=== PATIENT | male | born 1990 | race Caucasian/White ===

== ENCOUNTER 2021-09-14 02:44 | Emergency (ER) | payer SELFPAY ==
[~2021-09-14] VITALS: Ht 175.3 cm; Wt 70.0 kg
[2021-09-14] MEDS ORDERED: bacitracin 15gm ointment TP ONE (03:20)
[2021-09-14] MEDS ORDERED: TETanus/Pertussis (Acell)/Diphther VAC/PF (Tdap-Adult) 0.5ml syringe IMVAC ONE (03:20)
[2021-09-14] MEDS ORDERED: ondansetron 4mg rapidly disintigrating tab PO ONE (03:20)
[2021-09-14] MEDS ORDERED: amox tr/potassium clavulanate 875/125mg TAB PO ONE (03:20)
[2021-09-14] MEDS ORDERED: AMOX-115 PO (03:33)
[2021-09-14 04:07] VITALS: BP 117/74
== END 2021-09-14 04:08 ==
LOC: ER 02:44
DX: S71.152A Open bite, left thigh, initial encounter (principal); S31.825A Open bite of left buttock, initial encounter; S31.159A Open bite of abdominal wall, unspecified quadrant without penetration into peritoneal cavity, initial encounter; Z72.89 Other problems related to lifestyle; W54.0XXA Bitten by dog, initial encounter; Y93.89 Activity, other specified; Y92.89 Other specified places as the place of occurrence of the external cause; Y99.8 Other external cause status
CPT/HCPCS: 90471; 90715; 99284